=== PATIENT | male | born 1965 | race Caucasian/White ===

== ENCOUNTER 2022-03-06 05:20 | Day surgery (SDC) | payer OTHER, BC ==
[2022-02-27 11:20] LABS: BASOPHILS # (AUTO) 0.1 X10'3 (0-0.2); EOSINOPHILS # (AUTO) 0.3 X10'3 (0-0.9); EOSINOPHILS % (AUTO) 3.7 % (0-6); LYMPHOCYTES # (AUTO) 1.7 X10'3 (1.1-4.8); LYMPHOCYTES % (AUTO) 22.3 % (21-51); MEAN CORPUSCULAR HEMOGLOBIN 31.3 PG (27.0-31.0); MEAN CORPUSCULAR HGB CONC 34.1 g/dL (33.0-36.5); MEAN CORPUSCULAR VOLUME 91.8 FL (78-98); MEAN PLATELET VOLUME 8.3 FL (7.4-10.4); MONOCYTES # (AUTO) 1.1 X10'3 (0-0.9); MONOCYTES % (AUTO) 14.8 % (2-12); NEUTROPHILS # (AUTO) 4.4 X10'3 (1.8-7.7); NEUTROPHILS % (AUTO) 58.2 % (42-75); PRE OP HEMATOCRIT 41.3 % (42.0-52.0); PRE OP HEMOGLOBIN 14.1 g/dL (14.0-17.9); PRE OP PLATELET COUNT 274 X10'3 (140-440); RED CELL DISTRIBUTION WIDTH 14.1 % (11.5-14.5)
[2022-02-27 11:42] LABS: ALBUMIN 3.9 G/DL (3.4-5.0); ALBUMIN/GLOBULIN RATIO 1.4 (1.1-1.5); ALKALINE PHOSPHATASE 87 IU/L (46-116); BLOOD UREA NITROGEN 19 MG/DL (7-18); BUN/CREATININE RATIO 20.4 (5.4-32.0); CHLORIDE 103 MMOL/L (99-107); CREATININE 0.93 MG/DL (0.60-1.10); PRE OP ALT 33 U/L (30-65); PRE OP ANION GAP 8 (8-16); PRE OP AST 21 U/L (10-37); PRE OP BILIRUB, TOTAL 0.2 MG/DL (0.0-1.0); PRE OP GLUCOSE 96 MG/DL (70-104); PRE OP POTASSIUM 3.9 MMOL/L (3.4-5.1); PRE OP SODIUM 138 MMOL/L (135-145); TOTAL CARBON DIOXIDE 27.1 MMOL/L (24-32); TOTAL PROTEIN 6.7 G/DL (6.4-8.2); eGFR 84 ML/MIN
[~2022-03-06] VITALS: Ht 175.3 cm; Wt 88.5 kg
[2022-03-06] VITALS (17 sets, daily range): BP systolic 77–129; BP diastolic 46–80
[~2022-03-06 05:20] MED LIST: IBUP-1984 PO; LEVO200T8 PO; SIMV-42 PO; ringers solution, lacted 1,000 ML IV SCH
[2022-03-06] MEDS ORDERED: famotidine 20mg tablet PO ONE (05:30)
[2022-03-06] MEDS ORDERED: acetaminophen 325mg tablet PO ONE (05:30)
[2022-03-06] MEDS: gabapentin 300mg capsule PO ONE ×2 (05:30→06:07)
[2022-03-06] MEDS ORDERED: celeCOXIB 100mg capsule PO ONE (05:30)
[2022-03-06] MEDS ORDERED: metoclopramide 5 mg/ml inj IV ONE (05:30)
[2022-03-06] MEDS ORDERED: oxyCODONE SR 10mg (sust. release) tab -2 tabs (20mg) PO ONE (05:30)
[2022-03-06] MEDS ORDERED: vancomycin/NS 1 GM in NS 250 ML IV ONE (05:30)
[2022-03-06] MEDS ORDERED: tranexamic acid inj. 1,000 MG in normal saline IV soln 100ML IV ONE (05:30)
[2022-03-06] MEDS ORDERED: ceFAZolin inj. 2,000 MG in dextrose 5%-water 100 ML IV ONE (05:30)
--- NOTE | 2022-03-06 06:00 | NUR ---
PEDAL PULSE TO RIGHT FOOT PALPABLE AND MARKED W/ SKIN MARKER. CSM WNL. PT USED HIBI CLEANS X 5 ORDERED BY PRE OP JOINT PROTOCOL. PT ALSO READ TOTAL KNEE PAMPHLET. DENIES OINTMENT USE.
[2022-03-06] MEDS ORDERED: ROPIVAcaine 0.5% (5mg/ml) 30ml vial ONE ×2 (06:44→08:38)
[2022-03-06] MEDS ORDERED: ketorolac trometh. 30mg/ml inj. ONE (06:44)
[2022-03-06] MEDS ORDERED: epiNEPHrine 1 mg/ml inj ONE (06:44)
[2022-03-06] MEDS ORDERED: vancomycin 1,000mg inj ONE (06:44)
[2022-03-06] MEDS ORDERED: cloNIDine hcl/PF 100mcg/ml inj ONE (06:44)
[2022-03-06] MEDS ORDERED: HYDROmorphone 1 mg/ml syringe IV PRN (06:45)
[2022-03-06] MEDS ORDERED: diphenhydrAMINE 25mg capsule PO PRN ×2 (06:45)
[2022-03-06] MEDS ORDERED: potassium cl 20mEq in 1/2 NS 1,000 ML IV SCH (06:45)
[2022-03-06] MEDS ORDERED: bisacodyl 10mg suppository rectal RC PRN (06:45)
[2022-03-06] MEDS ORDERED: naloxone 0.4 mg/ml inj IV PRN (06:45)
[2022-03-06] MEDS ORDERED: HYDROmorphone inj. 0.5 MG/0.5 ML DISP.SYRIN IV PRN (06:45)
[2022-03-06] MEDS ORDERED: ondansetron/PF 4mg/2ml inj IV PRN ×2 (06:45→08:05)
[2022-03-06] MEDS ORDERED: HYDROcodone/acetaminophen 10/325mg tab PO PRN ×2 (06:45)
[2022-03-06] MEDS ORDERED: acetaminophen 325mg tablet PO PRN (06:45)
[2022-03-06] MEDS ORDERED: magnesium hydroxide 30ml (MOM) UD suspension PO PRN (06:45)
[2022-03-06] MEDS ORDERED: ibuprofen tablet 400 MG TABLET PO PRN (06:45)
[2022-03-06] MEDS ORDERED: fentaNYL/PF 50MCG/1 ML 2ML syringe ONE (07:23)
[2022-03-06] MEDS ORDERED: midazolam 1 mg/ML 2ml injection ONE (07:38)
[2022-03-06] MEDS ORDERED: propofol inj 20 ML IV ONE ×3 (07:38)
[2022-03-06] MEDS ORDERED: levoTHYROXINE 75mcg tablet PO SCH (08:00)
[2022-03-06] MEDS ORDERED: atorvastatin 10mg tablet PO SCH (08:00)
[2022-03-06] MEDS ORDERED: hydrALAZINE 20mg/ml inj. IV PRN (08:05)
[2022-03-06] MEDS ORDERED: morphine 2 MG/ML inj. syringe IV PRN (08:05)
[2022-03-06] MEDS ORDERED: ROPIVAcaine 0.2%/PF PUMP/bolus 545 ML ADDCANAL SCH (08:05)
[2022-03-06] MEDS ORDERED: acetaminophen 1,000mg/100ml IV 100 ML IV PRN (08:05)
[2022-03-06] MEDS ORDERED: labetalol 20mg/4ml (5mg/ml) syringe IV PRN (08:05)
[2022-03-06] MEDS ORDERED: ketorolac trometh. 30mg/ml inj. IV ONE (08:05)
[2022-03-06] MEDS ORDERED: ROPIVAcaine 0.2% (10 MG/5 ML) BOLUS INJECTION ADDCANAL PRN (08:05)
[2022-03-06] MEDS ORDERED: meperidine/PF 25mg/ml syringe IV PRN ×3 (08:05)
[2022-03-06] MEDS ORDERED: ringers solution, lacted 1,000 ML IV SCH (08:05)
[2022-03-06] MEDS ORDERED: morphine 4 MG/ML inj SYRINge IV PRN (08:05)
[2022-03-06] MEDS ORDERED: proCHLORperazine 10 MG/2 ml inj IV PRN (08:05)
--- NOTE | 2022-03-06 09:09 | NUR ---
Received from OR via ORTHO BED WITH PRDOC , accompanied by Anesthesiologist RAQUEL and report given by Anesthesiolgist. PATIENT WITH 20G PIV IN LEFT UE RUNNING LR AT 100. VSS. DENIES PAIN. SENSATION LEVEL AT L3 CURRENTLY. SCDS DONNED. POWDER PACK PRESENT AND +DP. Addendum: 03/06/22 at 0923 by Rob Vázquez RN, RN Amended: Links added.
--- NOTE | 2022-03-06 11:20 | NUR ---
CARE TURNED OVER TO JUAN COVARRUBIAS RN ON PASS UNIT. VSS IN STABLE CONDITION WITH FULL SENSATION TO BILAT FEET. 2 BAGS OF BELONGINGS SENT WITH PATIENT. PT PAGED AGAIN FOR EVAL AND TREAT. Addendum: 03/06/22 at 1150 by Rob Vázquez RN, RN Amended: Links added.
[2022-03-06] MEDS ORDERED: tranexamic acid inj. 880 MG in normal saline 100ml IV soln 91.2 ML IV ONE (12:30)
--- NOTE | 2022-03-06 14:29 | NUR ---
Pt was discharged safely via w/c. Pt ambulated w/ Physical therapy and was stable and stated readiness for DC to home. Pt has full sensation in bilat legs. Pt voided w/ out difficulty and ate a full lunch tray without nausea or vomiting. Drsg to right knee CDI. Pt and spouse state understanding regarding all DC instructions. Pt dc to home w/ via personal vehicle being driven by . Denies needs. All belongings w/ pt upon dc to home.
[2022-03-06] MEDS ORDERED: VANCOMYCIN 1,500MG inj. 1,500 MG in normal saline 500ml IV soln 300 ML IV ONE (18:00)
[2022-03-06] MEDS ORDERED: gabapentin 300mg capsule PO SCH (21:00)
[2022-03-06] MEDS ORDERED: sennosides 8.6mg tablet PO SCH (21:00)
[2022-03-07] MEDS ORDERED: multivitamins, therapeutics tablet PO SCH (08:00)
[2022-03-07] MEDS ORDERED: ascorbic acid 500mg tablet PO SCH (08:00)
[2022-03-07] MEDS ORDERED: aspirin 325mg tablet PO SCH (08:30)
[2022-03-07] MEDS ORDERED: celeCOXIB 100mg capsule PO SCH (20:00)
== END 2022-03-06 14:29 | disposition home or self-care (01) ==
LOC: PAS 05:20
PROVIDERS: ATTEND Orthopaedic Surgery
DX: M17.11 Unilateral primary osteoarthritis, right knee (principal); M21.161 Varus deformity, not elsewhere classified, right knee; G47.33 Obstructive sleep apnea (adult) (pediatric); G89.18 Other acute postprocedural pain; E03.9 Hypothyroidism, unspecified; Z79.899 Other long term (current) drug therapy; Z72.89 Other problems related to lifestyle; Z87.891 Personal history of nicotine dependence; Z79.82 Long term (current) use of aspirin; Z98.890 Other specified postprocedural states
CPT/HCPCS: 27447; 36415; 64448; 73560; 80053; 82948; 84443; 85025; 86885; 86900; 86901; 87081; 97110; 97161; 97530; C1713; C1776; J0171; J0690; J0735; J1885; J2250; J2704; J2765; J2795; J3010; J3370; J3490; J7030; J7060; J7120; Z7506; Z7508; Z7512; A4215; A6449; A7000

== ENCOUNTER 2023-04-30 05:45 | Day surgery (SDC) | payer OTHER, BC ==
[2023-04-23 14:43] LABS: BASOPHILS # (AUTO) 0.1 X10'3 (0-0.2); BASOPHILS % (AUTO) 0.7 % (0-1); EOSINOPHILS # (AUTO) 0.3 X10'3 (0-0.9); EOSINOPHILS % (AUTO) 3.2 % (0-6); LYMPHOCYTES # (AUTO) 1.9 X10'3 (1.1-4.8); LYMPHOCYTES % (AUTO) 23.7 % (21-51); MEAN CORPUSCULAR HEMOGLOBIN 30.5 PG (27.0-31.0); MEAN CORPUSCULAR HGB CONC 33.5 g/dL (33.0-36.5); MEAN CORPUSCULAR VOLUME 90.8 FL (78-98); MEAN PLATELET VOLUME 8.7 FL (7.4-10.4); MONOCYTES # (AUTO) 1.2 X10'3 (0-0.9); MONOCYTES % (AUTO) 15.1 % (2-12); NEUTROPHILS # (AUTO) 4.7 X10'3 (1.8-7.7); NEUTROPHILS % (AUTO) 57.3 % (42-75); PRE OP HEMATOCRIT 44.1 % (42.0-52.0); PRE OP HEMOGLOBIN 14.8 g/dL (14.0-17.9); PRE OP PLATELET COUNT 256 X10'3 (140-440); PRE OP WHITE BLOOD COUNT 8.1 10'3 (4.8-10.8); RED BLOOD COUNT 4.86 X10'6 (4.70-6.10); RED CELL DISTRIBUTION WIDTH 14.1 % (11.5-14.5)
[2023-04-23 14:48] LABS: BILIRUBIN,URINE NEGATIVE (Neg); CLARITY,URINE CLEAR (Clear); COLOR,URINE STRAW (Yellow); GLUCOSE, URINE NEGATIVE (Neg); KETONES,URINE NEGATIVE (Neg); LEUKOCYTE ESTERASE ,URINE NEGATIVE (Neg); NITRITES, URINE NEGATIVE (Neg); OCCULT BLOOD,URINE TRACE-INTACT (Neg); PH,URINE 5.5 (4.8-8.0); PROTEIN,URINE NEGATIVE (Neg); UROBILINOGEN,URINE 0.2 E.U/dL (0.2-1.0)
[2023-04-23 14:54] LABS: UA COLLECTION TYPE CLN CATCH MIDSTREAM
[2023-04-23 14:55] LABS: SQUAMOUS EPITHELIAL CELL,UR FEW /LPF (FEW)
[2023-04-23 14:56] LABS: BACTERIA,URINE NONE SEEN /HPF (Neg); RBC,URINE 0-2 /HPF (0-2); WBC,URINE NONE SEEN /HPF (0-4)
[2023-04-23 14:59] LABS: PRE OP INR 0.9 INR
[2023-04-23 15:15] LABS: PLATELET ESTIMATE NORMAL; TOTAL CELLS COUNTED 100
[2023-04-23 15:23] LABS: ALBUMIN 3.6 G/DL (3.4-5.0); ALBUMIN/GLOBULIN RATIO 1.1 (1.1-1.5); ALKALINE PHOSPHATASE 77 IU/L (46-116); BLOOD UREA NITROGEN 21 MG/DL (7-18); BUN/CREATININE RATIO 22.3 (10.0-20.0); CHLORIDE 103 MMOL/L (99-107); CREATININE 0.94 MG/DL (0.60-1.10); PRE OP ALT 29 U/L (30-65); PRE OP ANION GAP 11 (8-16); PRE OP AST 21 U/L (10-37); PRE OP BILIRUB, TOTAL 0.4 MG/DL (0.0-1.0); PRE OP GLUCOSE 86 MG/DL (70-104); PRE OP POTASSIUM 4.1 MMOL/L (3.4-5.1); PRE OP SODIUM 138 MMOL/L (135-145); THYROID STIMULATING HORMONE 3.84 ulU/ml (0.34-4.50); TOTAL CARBON DIOXIDE 23.7 MMOL/L (24-32); eGFR 83 ML/MIN
[~2023-04-30] VITALS: Ht 175.3 cm; Wt 95.4 kg
[2023-04-30] VITALS (30 sets, daily range): BP systolic 88–123; BP diastolic 50–75; PULSE 70–92; RESP 12–21; TEMP 97.2–98.1; O2SAT 92–99
[~2023-04-30 05:45] MED LIST changes: -IBUP-1984 PO; +LEVO25TA7 PO; +ROSU10TA28 PO; -SIMV-42 PO; -ringers solution, lacted 1,000 ML IV SCH
[2023-04-30] MEDS: famotidine 20mg tablet PO ONE (06:21)
[2023-04-30] MEDS: ringers solution, lacted 1,000 ML IV SCH ×2 (06:22→09:20)
[2023-04-30] MEDS ORDERED: methylene blue (5mg/ml) 50mg/10ml ampul IV ONE (06:30)
[2023-04-30] MEDS ORDERED: Thrombin (Bovine) 5,000 unit vial TP ONE (06:31)
[2023-04-30] MEDS ORDERED: gelatin sponge, absorbable (Gelfoam 100) sponge TP ONE (06:31)
[2023-04-30] MEDS: potassium cl 20mEq in 1/2 NS 1,000 ML IV SCH (06:45)
[2023-04-30] MEDS ORDERED: ondansetron/PF 4mg/2ml inj IV PRN ×2 (06:45→09:20)
[2023-04-30] MEDS ORDERED: magnesium hydroxide 30ml (MOM) UD suspension PO PRN (06:45)
[2023-04-30] MEDS ORDERED: diphenhydrAMINE 25mg capsule PO PRN (06:45)
[2023-04-30] MEDS ORDERED: naloxone 0.4 mg/ml inj IV PRN (06:45)
[2023-04-30] MEDS ORDERED: bisacodyl 10mg suppository rectal RC PRN (06:45)
[2023-04-30] MEDS ORDERED: acetaminophen 325mg tablet PO PRN (06:45)
[2023-04-30] MEDS ORDERED: sevoflurane 250ml liquid IH ONE (06:52)
[2023-04-30] MEDS ORDERED: cloNIDine hcl/PF 100mcg/ml inj ONE (06:54)
[2023-04-30] MEDS ORDERED: midazolam 1 mg/ML 2ml injection ONE (06:57)
[2023-04-30] MEDS: cefazolin 2gm/D5W 100mL 100 ML IV ONE (07:00)
[2023-04-30] MEDS: tranexamic acid inj. 1,000 MG in normal saline IV soln 100ML IV ONE (07:15)
[2023-04-30] MEDS ORDERED: LIDOcaine 2% (20mg/ml) 5ml vial ONE (07:49)
[2023-04-30] MEDS ORDERED: propofol inj 20 ML IV ONE (07:49)
[2023-04-30] MEDS ORDERED: ondansetron/PF 4mg/2ml inj ONE (07:49)
[2023-04-30] MEDS ORDERED: ROPIVAcaine 0.5% (5mg/ml) 30ml vial ONE (07:49)
[2023-04-30] MEDS ORDERED: rocuronium 10mg/ml inj IV ONE (07:49)
[2023-04-30] MEDS ORDERED: LIDOcaine 1%/PF 5ML 10 MG/ML VIAL ONE (07:49)
[2023-04-30] MEDS ORDERED: fentaNYL /PF 50mcg/ml 5ml ampule ONE (07:49)
[2023-04-30] MEDS ORDERED: ePHEDrine 50MG/ML INJ. ONE (07:49)
[2023-04-30] MEDS ORDERED: dexamethasone sod phosphate 4mg/ml inj. ONE (07:50)
[2023-04-30] MEDS: vancomycin 1,000mg inj ONE (09:08)
[2023-04-30] MEDS: acetaminophen 1,000mg/100ml IV 100 ML IV ONE (09:20)
[2023-04-30] MEDS ORDERED: morphine 4 MG/ML inj SYRINge IV PRN (09:20)
[2023-04-30] MEDS ORDERED: meperidine/PF 25mg/ml syringe IV PRN ×3 (09:20)
[2023-04-30] MEDS ORDERED: proCHLORperazine 10 MG/2 ml inj IV PRN (09:20)
[2023-04-30] MEDS: ketorolac trometh. 30mg/ml inj. IV ONE (09:20)
[2023-04-30] MEDS ORDERED: labetalol 20mg/4ml (5mg/ml) syringe IV PRN (09:20)
[2023-04-30] MEDS ORDERED: hydrALAZINE 20mg/ml inj. IV PRN (09:20)
[2023-04-30] MEDS ORDERED: morphine 2 MG/ML inj. syringe IV PRN (09:20)
[2023-04-30] MEDS ORDERED: glycopyrrolate 0.2mg/ml inj ONE (09:39)
[2023-04-30] MEDS ORDERED: neostigmine methylsulfate 1 MG/ML 10ml vial ONE (09:39)
[2023-04-30] MEDS: oxyCODONE/APAP 5-325mg tablet PO PRN (15:10)
[2023-04-30] MEDS: cefazolin 2gm/D5W 100mL 100 ML IV SCH (15:39)
[2023-04-30] MEDS: atorvastatin 20mg tablet PO SCH (20:25)
[2023-05-01] VITALS: BP 100/55; PULSE 94; TEMP 98.1; O2SAT 9; O2SAT 96
[2023-05-01 04:00] VITALS: BP 105/58; PULSE 80; TEMP 97.9; O2SAT 96
[2023-05-01 06:00] VITALS: BP 99/59; PULSE 71; RESP 18; TEMP 97.9; O2SAT 96
[2023-05-01] MEDS: levoTHYROXINE 100mcg tablet PO SCH (07:04)
[2023-05-01] MEDS: levoTHYROXINE 25mcg tablet PO SCH (07:04)
[2023-05-01 08:11] LABS: BASOPHILS % (AUTO) 0.3 % (0-1); EOSINOPHILS # (AUTO) 0.1 X10'3 (0-0.9); EOSINOPHILS % (AUTO) 0.4 % (0-6); HEMATOCRIT 36.7 % (42.0-52.0); HEMOGLOBIN 12.3 g/dl (14.0-17.9); LYMPHOCYTES % (AUTO) 14.8 % (21-51); MEAN CORPUSCULAR HEMOGLOBIN 30.4 PG (27.0-31.0); MEAN CORPUSCULAR HGB CONC 33.4 g/dL (33.0-36.5); MEAN CORPUSCULAR VOLUME 91.2 FL (78-98); MEAN PLATELET VOLUME 8.9 FL (7.4-10.4); MONOCYTES % (AUTO) 14.8 % (2-12); NEUTROPHILS # (AUTO) 9.6 X10'3 (1.8-7.7); NEUTROPHILS % (AUTO) 69.7 % (42-75); PLATELET COUNT 221 X10'3 (140-440); RED BLOOD COUNT 4.03 X10'6 (4.70-6.10); RED CELL DISTRIBUTION WIDTH 13.9 % (11.5-14.5); WHITE BLOOD COUNT 13.7 X10'3 (4.5-11.0)
[2023-05-01 08:42] LABS: ANION GAP 7 (8-16); CHLORIDE 108 MMOL/L (99-107); POTASSIUM 3.9 MMOL/L (3.5-5.1); SODIUM 138 MMOL/L (135-145); TOTAL CARBON DIOXIDE 23.1 MMOL/L (24-32)
[2023-05-01 10:06] VITALS: RESP 15
== END 2023-05-01 11:10 | disposition home or self-care (01) ==
LOC: PAS 05:45 → ORTHO 4S 06:54 → PAS 05-01 11:10
PROVIDERS: ATTEND Specialist
DX: M19.011 Primary osteoarthritis, right shoulder (principal); G89.18 Other acute postprocedural pain; E03.9 Hypothyroidism, unspecified; E78.5 Hyperlipidemia, unspecified; G47.33 Obstructive sleep apnea (adult) (pediatric); I20.9 Angina pectoris, unspecified; I25.2 Old myocardial infarction; Z87.891 Personal history of nicotine dependence; Z79.1 Long term (current) use of non-steroidal anti-inflammatories (NSAID); Z79.890 Hormone replacement therapy; Z79.899 Other long term (current) drug therapy; Z96.651 Presence of right artificial knee joint; Z98.890 Other specified postprocedural states; Z83.49 Family history of other endocrine, nutritional and metabolic diseases
CPT/HCPCS: 23430; 23472; 36415; 64415; 73030; 80051; 80053; 81001; 82948; 84443; 85025; 85610; 85730; 86885; 86900; 86901; 87081; 97110; 97161; 97530; C1713; C1776; J0690; J0735; J1100; J2250; J2405; J2704; J2710; J2795; J3010; J3370; J3480; J3490; J7030; J7120; Z7506; Z7508; Z7512; 76000; 85007; A4565; A4618; A6449; A6455; A7000; G0378; Q9968